=== PATIENT | male | born 1990 | race Two or more races ===

== ENCOUNTER 2022-04-10 11:44 | Emergency (ER) | payer OTHER ==
[~2022-04-10] VITALS: Ht 175.3 cm; Wt 74.8 kg
== END 2022-04-10 16:13 ==
LOC: ER 11:44
DX: T07.XXXA Unspecified multiple injuries, initial encounter (principal); V49.9XXA Car occupant (driver) (passenger) injured in unspecified traffic accident, initial encounter; Y93.9 Activity, unspecified; Y92.413 State road as the place of occurrence of the external cause; Y99.9 Unspecified external cause status; M62.838 Other muscle spasm; M54.2 Cervicalgia